=== PATIENT | female | born 1970 ===

== ENCOUNTER 2017-08-20 13:44 | Inpatient (IN) | payer OTHER ==
[~2017-08-20] VITALS: Ht 160 cm; Wt 95.7 kg
[~2017-08-20 13:44] MED LIST: CLARINEX-D 11 BOTTLE PO; SYNTHROID50 MCG PO; ULTRACET PO
[2017-09-17] MEDS ORDERED: NORFLEX100MG PO (15:31)
[2017-09-17] MEDS ORDERED: PERCOCET 5-3251 EACH PO (15:31)
[2017-09-17] MEDS ORDERED: INTESTINEX680 M1 PO (15:31)
[2017-09-17] MEDS ORDERED: OMEPRAZOLE20 MG PO (15:31)
== END 2017-09-17 16:12 | disposition home or self-care (01) | DRG 331 ==
LOC: SURH 09-13 07:00 → O/R 09-13 07:20 → SURH 09-13 11:26
PROVIDERS: Surgery
PROC: 0DJD8ZZ Inspection of Lower Intestinal Tract, Via Natural or Artificial Opening Endoscopic (ICD-10-PCS; 2017-09-13)
PROC: 0DTN4ZZ Resection of Sigmoid Colon, Percutaneous Endoscopic Approach (ICD-10-PCS; principal; 2017-09-13 07:00)
DX: K57.32 Diverticulitis of large intestine without perforation or abscess without bleeding (principal); J44.9 Chronic obstructive pulmonary disease, unspecified

== ENCOUNTER 2017-09-20 14:36 | Emergency (ER) | payer OTHER ==
[~2017-09-20] VITALS: Ht 165.1 cm; Wt 81.6 kg
[~2017-09-20 14:36] MED LIST changes: +INTESTINEX680 M1 PO; +NORFLEX100MG PO; +OMEPRAZOLE20 MG PO; +PERCOCET 5-3251 EACH PO
== END 2017-09-20 17:15 | disposition home or self-care (01) ==
LOC: ER 14:36
DX: B37.0 Candidal stomatitis (principal)

== ENCOUNTER 2017-10-02 12:34 | Inpatient (IN) | payer OTHER ==
[~2017-10-02] VITALS: Ht 160 cm
== END 2017-10-15 08:21 | disposition home or self-care (01) | DRG 372 ==
LOC: ER 12:34 → MEDI 19:38 → MEDJ 19:38 → SURH 10-11 19:50
PROC: BW25Y0Z Computerized Tomography (CT Scan) of Chest, Abdomen and Pelvis using Other Contrast, Unenhanced and Enhanced (ICD-10-PCS; 2017-10-02)
PROC: 0W9J30Z Drainage of Pelvic Cavity with Drainage Device, Percutaneous Approach (ICD-10-PCS; principal; 2017-10-03)
PROC: 3E0336Z Introduction of Nutritional Substance into Peripheral Vein, Percutaneous Approach (ICD-10-PCS; 2017-10-03)
PROC: 02HV33Z Insertion of Infusion Device into Superior Vena Cava, Percutaneous Approach (ICD-10-PCS; 2017-10-04)
PROC: BW25Y0Z Computerized Tomography (CT Scan) of Chest, Abdomen and Pelvis using Other Contrast, Unenhanced and Enhanced (ICD-10-PCS; 2017-10-11)
DX: K65.1 Peritoneal abscess (principal); T81.4XXA Infection following a procedure, initial encounter; B37.89 Other sites of candidiasis; J98.11 Atelectasis; B02.8 Zoster with other complications; N39.3 Stress incontinence (female) (male); J44.9 Chronic obstructive pulmonary disease, unspecified; Z90.49 Acquired absence of other specified parts of digestive tract; E11.9 Type 2 diabetes mellitus without complications; B96.29 Other Escherichia coli [E. coli] as the cause of diseases classified elsewhere; B95.2 Enterococcus as the cause of diseases classified elsewhere; M62.830 Muscle spasm of back